=== PATIENT | female | born 1955 | race Caucasian/White ===

== ENCOUNTER 2018-12-12 09:39 | Emergency (ER) | payer MEDICARE, BC ==
[2018-12-12 09:57] VITALS: BP 109/58
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
== END 2018-12-12 10:57 | disposition short-term general hospital (02) ==
LOC: UCCORT 09:39
DX: R10.31 Right lower quadrant pain (principal); I10 Essential (primary) hypertension; F32.9 Major depressive disorder, single episode, unspecified; Z87.891 Personal history of nicotine dependence
CPT/HCPCS: 99212; G0463